=== PATIENT | female | born 1980 | race Caucasian/White ===

== ENCOUNTER 2024-09-28 10:53 | Emergency (ER) | payer BC, SELFPAY ==
[2024-09-28 10:55] VITALS: BP 147/74
[2024-09-28 11:06] VITALS: BP 131/83
[2024-09-28 11:10] VITALS: BMI 20.8
--- NOTE | 2024-09-28 11:12 | ED.GENMED ---
History of Present Illness
<MUSA Root - Last Filed: 09/28/24 14:24>
General
Chief Complaint: Chest Pain
Source: patient
Exam Limitations: none
Time Seen by Provider: 09/28/24 11:01
Nursing documentation reviewed up to this point in time: agreed with
History of Present Illness
History of Present Illness:
Patient is a 44-year-old female who presents to the ER with chest pain. She reports off-and-on for the past several weeks she has had intermittent pain in the left side of her chest that she reports is a stabbing off-and-on chest tightness worse
with taking a deep breath bending forward and laying on her right side. Today patient developed same symptoms after breakfast which seem to stay which is what concerned her. She again reports however it is worse with taking a deep breath or
sitting up. She denies any back pain. She is not short of breath. She was told 15 yrs ago in her [place] that she had a valve issue but has never seen cardiology here. She denies any trauma. Denies any fever chills recent illness cough.
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
PT reports her son had bicuspid aortic valve at age 15 and had it repaired.
She is a non-smoker she is not on oral contraceptives or hormone replacement. No prior history of DVT PE.
Review of Systems
<MUSA Root - Last Filed: 09/28/24 14:24>
Review of Systems
Allergies reviewed?: Yes
All Other Systems: ROS reviewed and negative except as documented in HPI and ROS
Constitutional: Reports no symptoms
Respiratory: Denies trouble breathing
Cardiac: Reports chest pain (Chest pain worse with deep breaths sitting up and laying on the right side)
ABD/GI: Reports no symptoms
: Reports no symptoms
Musculoskeletal: Reports no symptoms
Skin: Reports no symptoms
Neurological: Reports no symptoms
Psychiatric: Reports no symptoms
Phy Exam
<MUSA Root - Last Filed: 09/28/24 14:24>
General Physical Exam
General Presentation: no apparent distress
General age: appears stated age
General Skin: warm and dry
General Habitus: normal
General Mental: alert
General Hydration: appears well hydrated
Cardiovascular Exam
Cardiovascular Exam: regular rate/rhythm, no murmur and normal peripheral pulses
Pulmonary Exam
Pulmonary Exam: lungs clear, no respiratory distress and other (None tender worse with deep breath)
Neurological Exam
Neurological Exam: alert and oriented x3
Musculoskeletal Exam
Musculoskeletal Exam: full ROM
Skin Exam
Skin Exam: normal color and warm/dry
Psychiatric Exam
Psychiatric Exam: normal mood/affect
Scores
<MUSA Root - Last Filed: 09/28/24 14:24>
Heart Score for Chest Pain Patients
STEMI patient?: Not applicable
Course
<MUSA Root - Last Filed: 09/28/24 14:24>
Orders/Labs/Results
Orders:
Orders
09/28/24 10:54
ECG [Electrocardiogram (*1)] Urgent
Reason for Study: Chest Pain
EKG- Treatment ONCE
09/28/24 11:14
IV Insert/Care/Rem.- Treatment PRN
09/28/24 11:15
Cardiac Monitoring- Treatment ONCE
CR Chest - 2 Views Urgent
Comment:
Reason For Exam: cp
09/28/24 11:23
Complete Blood Count/With Diff Urgent
Comprehensive Metabolic Panel Urgent
D-Dimer Urgent
Troponin I Urgent
09/28/24 12:36
Ketorolac [Toradol] 15 mg IV NOW STA
Abnormal Lab Results
09/28/24
11:23
Hct 36.0 L %
(37.0-47.0)
Monocytes % 10.5 H %
(1.7-9.3)
Total Bilirubin 1.6 H mg/dl
(0.2-1.3)
09/28/24 11:23
09/28/24 11:23
Vital Signs
Initial and Last Documented VS:
Initial Vital Signs
Temp Pulse Resp BP Pulse Ox
97.4 F 91 18 147/74 100
09/28/24 10:55 09/28/24 10:55 09/28/24 10:55 09/28/24 10:55 09/28/24 10:55
Last Documented Vital Signs
Temp Pulse Resp BP Pulse Ox
97.4 F 78 15 117/74 100
09/28/24 10:55 09/28/24 12:30 09/28/24 12:30 09/28/24 12:11 09/28/24 10:55
[employer] consulted with Physician
[facility] [employer] consulted with physician?: Yes
Name of Physician Consulted: DR Jacobs
<Kerwin Jacobs MD - Last Filed: 09/28/24 12:47>
Orders/Labs/Results
Orders:
Orders
09/28/24 10:54
ECG [Electrocardiogram (*1)] Urgent
Reason for Study: Chest Pain
EKG- Treatment ONCE
09/28/24 11:14
IV Insert/Care/Rem.- Treatment PRN
09/28/24 11:15
Cardiac Monitoring- Treatment ONCE
CR Chest - 2 Views Urgent
Comment:
Reason For Exam: cp
09/28/24 11:23
Complete Blood Count/With Diff Urgent
Comprehensive Metabolic Panel Urgent
D-Dimer Urgent
Troponin I Urgent
09/28/24 12:36
Ketorolac [Toradol] 15 mg IV NOW STA
Abnormal Lab Results
09/28/24
11:23
Hct 36.0 L %
(37.0-47.0)
Monocytes % 10.5 H %
(1.7-9.3)
Total Bilirubin 1.6 H mg/dl
(0.2-1.3)
09/28/24 11:23
09/28/24 11:23
Vital Signs
Initial and Last Documented VS:
Initial Vital Signs
Temp Pulse Resp BP Pulse Ox
97.4 F 91 18 147/74 100
09/28/24 10:55 09/28/24 10:55 09/28/24 10:55 09/28/24 10:55 09/28/24 10:55
Last Documented Vital Signs
Temp Pulse Resp BP Pulse Ox
97.4 F 78 15 117/74 100
09/28/24 10:55 09/28/24 12:30 09/28/24 12:30 09/28/24 12:11 09/28/24 10:55
<MUSA Root - Last Filed: 09/28/24 14:24>
MDM/Problems Addressed
MDM/Problems Addressed:
44-year-old female presents to the ER for evaluation of chest pain. She has had intermittent chest pain over the past several weeks worse with taking a deep breath lying on side and sitting up. 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
no symptoms while at work. She denies any injury. She does have history of valve issues 15 years ago. She denies any back pain. Patient presents very muscular in nature. She has no other cardiac issues. She denies any recent illness fever
chills she is afebrile. She has no DVT PE risk factors. D-dimer unremarkable. EKG with nonspecific ST changes no prior EKG here however patient had copy of EKG from urgent care in the past ( 1 month ago ) on her phone which is unchanged.
Symptoms are likely muscular however will DC with recommended cardiology follow-up as she does have a history of valve issue in the past to ensure outpatient follow-up
<MUSA Root - Last Filed: 09/28/24 14:24>
*Critical Care Note
Total Time (30-74mins, 75-104mins- exclusive of procedures): Not Applicable
ED Attending Note
<MUSA Root - Last Filed: 09/28/24 14:24>
-
Portions of this chart may have been created with voice recognition software.� Occasional wrong word or��sound alike� substitutions may have occurred due to the inherent limitations of voice recognition software.
<Kerwin Jacobs MD - Last Filed: 09/28/24 12:47>
ED Attending Note
Patient seen and examined by attending physician: Yes
I performed the substantive portion of visit, reviewed & personally made and approve the management plan that is documented in note by myself or BIA.: Yes
ED Attending Note:
Patient with localized anterior left sternal chest pain. Started 4 days ago. Continuous in nature. Worse with deep breathing. Worse with twisting to the right. Did have a syncopal episode 1 month ago. None recently. Denies shortness of breath
shearing pain back pain etc.
On exam patient is nontoxic in no distress. Speech is normal. No respiratory distress. Lungs clear and equal. Heart regular rate and rhythm. No murmur. No chest wall tenderness. Abdomen nontender. Extremities without cord or swelling.
EKG is nonspecific changes. D-dimer is negative. Chest x-ray is negative. Cardiac testing is negative after 4 days of continual atypical symptoms.
Symptoms are all consistent with a costochondritis. Clearly a positional very localized chest pain worse with deep breathing worse with twisting to the right. There is a family history of a bicuspid aortic valve however patient describes an
[place]ocardi[place] with a mitral valve prolapse with no description of a bicuspid valve. We hear no murmur. She has no mediastinal widening. She has a negative D-dimer. Do not feel chest CT is warranted. Again symptoms all
consistent with a costochondritis
Discharge Plan
Departure
Patient Disposition: Home (Routine Discharge)
Date of Disposition: 09/28/24
Time of Disposition: 13:53
Patient with high blood pressure during this ER visit?: No
Condition: Fair
Covid-19: Not Applicable
Discharge Problem:
Chest pain
Instructions: Chest Pain That Is Not Caused by the Heart (DC)
Referrals:
Mulu Avendaño DO [Family Provider] -
Amari Hernandez MD [Active] -
Activity Restrictions/Additional Instructions:
You may take Tylenol for discomfort. Follow-up with family doctor in the next several days as well as cardiology. Return if any worsening of symptoms.
Interventions
Interventions:
*Risk Screen - Suicide Last Done: 09/28/24 11:00
*General Assessment Last Done: 09/28/24 11:00
*Neglect/Abuse Screening Last Done: 09/28/24 11:00
ED- Fall Risk Assessment Last Done: 09/28/24 11:06
*ED COVID-19 Vaccine History Last Done: 09/28/24 11:10
ED- Cardiac Assessment Last Done: 09/28/24 11:06
Discharge Date and Time
Print Language: [place]
[2024-09-28 11:49] LABS: % Basophils 0.7 % (0-2); % Eosinophils 4.1 % (0-6); % Immature Granulocytes 0.3 % (0-0.5); % Lymphocytes 41.3 % (20.5-51.1); % Monocytes 10.5 % (1.7-9.3); % Neutrophils 43.1 % (42.2-75.2); Absolute Eosinophils 0.3 10^3/uL (0-0.7); Absolute Lymphocytes 2.5 10^3/uL (1.2-3.4); Absolute Monocytes 0.6 10^3/uL (0.1-0.6); Absolute Neutrophils 2.6 10^3/uL (1.4-6.5); Hemoglobin 12.1 g/dL (12.0-16.0); Mean Corp Hgb Conc. 33.6 g/dL (33.0-37.0); Mean Corpuscular Hgb 27.8 pg (27.0-31.0); Mean Corpuscular Volume 82.6 fL (81.0-99.0); Mean Platelet Volume 9.8 fL (7.4-10.4); Nucleated Red Blood Cells % 0 %; Platelet Count 289 10^3/uL (130-400); Red Blood Cell Count 4.36 10^6/uL (4.20-5.40); Red Cell Dist. Width 13.1 % (11.5-14.5); White Blood Cell Count 6.1 10^3/uL (4.8-10.8)
[2024-09-28 11:57] LABS: D-Dimer < 0.27 ug/mlFEU (0.00-0.50)
[2024-09-28 12:00] LABS: ALT (SGPT) 22 U/L (0-35); AST (SGOT) 22 U/L (14-36); Albumin 4.6 g/dl (3.5-5.0); Alkaline Phosphatase 46 U/L (38-126); Blood Urea Nitrogen 14 mg/dl (7-17); Calcium 9.5 mg/dl (8.4-10.2); Carbon Dioxide 23 mmol/L (22-30); Chloride 107 mmol/L (98-107); Estimated Creatinine Clearance 99 ml/min; Glucose 95 mg/dl (70-99); Potassium 4.7 mmol/L (3.5-5.1); Sodium 143 mmol/L (135-145); Total Bilirubin 1.6 mg/dl (0.2-1.3); Total Protein 7.6 g/dl (6.3-8.2); eGFR > 60.00
[2024-09-28 12:11] VITALS: BP 117/74
[2024-09-28 12:11] LABS: Troponin I < 0.012 ng/ml
[2024-09-28] MEDS: TORADOL 15 MG IV (12:58)
[2024-09-28 13:00] VITALS: BP 115/81
== END 2024-09-28 14:34 | disposition home or self-care (01) ==
LOC: EMR 10:53
PROVIDERS: Nurse Practitioner; EMERGENCY PHYSICIAN Emergency Medicine; FAMILY PHYSICIAN Family Medicine
DX: R07.89 Other chest pain (principal)
CPT/HCPCS: 99284; 96374; 71046; 80053; 84484; 85025; 85379; 93005

== ENCOUNTER → 2024-12-21 07:02 | Outpatient (REF) | payer BC, SELFPAY | LOC: RCS 07:02 | PROVIDERS: ATTENDING PHYSICIAN Internal Medicine Cardiovascular Disease; FAMILY PHYSICIAN Family Medicine | DX: R07.89 Other chest pain (principal) | CPT/HCPCS: 93306 ==